=== PATIENT | male | born 1940 | race Caucasian/White ===

== ENCOUNTER 2018-08-23 06:15 | Inpatient (IN) ==
[2018-08-23] MEDS ORDERED: Bupivacaine/Epinephrine PF Inj 0.5% 30 ML Vial ONE (06:29)
[2018-08-23] MEDS ORDERED: Gelatin Size 100 Topical Foam ONE (06:29)
[2018-08-23] MEDS ORDERED: Thrombin Topical Soln 5,000 UNIT Vial TOPICAL ONE (06:29)
[2018-08-23] MEDS ORDERED: ceFAZolin 2 GM Premix Inj 2 GM/50 ML PIGGYBACK IV.SIG ONE (06:29)
[2018-08-23] MEDS ORDERED: HYDROmorphone PF Inj 2 MG/ML Vial ONE (07:13)
[2018-08-23] MEDS ORDERED: Ketamine Inj 50 MG/5 ML Syringe IV.PUSH ONE (07:13)
[2018-08-23] MEDS ORDERED: Dexmedetomidine Inj 200 MCG/2 ML Vial ONE (07:13)
[2018-08-23] MEDS ORDERED: Artificial Tears Opth Oint 3.5 GM Tube ONE (07:13)
[2018-08-23] MEDS ORDERED: Propofol Inj 500 MG/50 ML Vial ONE ×2 (07:14→12:03)
[2018-08-23] MEDS ORDERED: fentaNYL Citrate Inj 250 MCG/5 ML Ampul ONE (07:14)
[2018-08-23] MEDS ORDERED: Metoprolol Tartrate 25 MG Tablet PO ONE (07:30)
[2018-08-23] MEDS ORDERED: Sodium Chlor 0.9% Inj 500 ML IV.CONT ONE (07:30)
[2018-08-23] MEDS ORDERED: Sod Chloride 0.9% Inj 1,000 ML IV.SIG SCH (07:30)
[2018-08-23] MEDS ORDERED: Chlorhexidine Gluconate 2% 1 Pack (2 Cloths) TOPICAL ONE (07:30)
[2018-08-23] MEDS ORDERED: Vancomycin Inj 1,000 MG in Sodium Chlor 0.9% Inj 250 ML IV.SIG SCH (08:00)
[2018-08-23] MEDS ORDERED: Bisacodyl 10 MG Supp RECTAL PRN (09:56)
[2018-08-23] MEDS ORDERED: Morphine Inj 4 MG/ML Vial IV.PUSH PRN (09:56)
[2018-08-23] MEDS ORDERED: Naloxone Inj 0.4 MG/ML Vial IV.PUSH PRN ×2 (10:00→10:02)
[2018-08-23] MEDS ORDERED: Dextrose 50% in Water 50 ML Vial IV.PUSH PRN (10:00)
[2018-08-23] MEDS ORDERED: ALPRAZolam 0.5 MG Tablet PO PRN (10:02)
[2018-08-23] MEDS ORDERED: HYDROmorphone PCA Inj 6 MG/30 ML PCA.VIAL PCA PRN (10:02)
[2018-08-23] MEDS ORDERED: Insulin NovoLIN Regular Correctional Sugar Inj SQ SCH (12:00)
--- NOTE | 2018-08-23 14:21 | XR ---
EXAM DATE: 08/23/2018 2:04 PM EST AGE/SEX: 78 years / Male INDICATIONS: Stenosis, hardware placement. CLINICAL DATA: This is the patient's initial encounter. Patient reports that signs and symptoms have been present for 1 day and indicates a pain score of 0/10. MEDICAL/SURGICAL HISTORY: None. . Fusion COMPARISON: No prior exams available for comparison. FINDINGS: Transpedicular screws traverse the bodies of L3, L4, L5, and S1 with posterior stabilization hardware in place and there is fusion at L4-5 and L5-S1 anteriorly with gross anatomical alignment . CONCLUSION: Intact immediate postsurgical changes. Electronically signed by: Shaun Sousa MD 08/23/2018 2:20 PM EST
[2018-08-23] MEDS: Insulin NovoLOG Aspart Correctional Sugar Inj SQ SCH ×3 (14:39→23:36)
[2018-08-23] MEDS: Sod Chloride 0.9% Inj 1,000 ML IV.SIG SCH (15:59)
--- NOTE | 2018-08-23 16:16 | P.OP ---
Preoperative Diagnosis: Degenerative spondylolisthesis at L5-S1 Postoperative Diagnosis: Degenerative spondylolisthesis at L5-S1 Date of procedure: 08/23/18 Procedure: L5-S1 laminectomy, interbody arthrodhesis using PEEK cage and autologous bone graft, L5-S1 instrumental fixation using transpedicular screws and rods, L5-S1 posterolateral fusion using autologous bone graft and demineralized bone matrix. Microsurgical dissection Anesthesia: GETA Surgeon: Thom Dunaway MD Creative Specialist: Traci Galeana Pathology: none sent Operation and Findings: INDICATIONS FOR THE SURGICAL PROCEDURE Mr Hadley is a 78 year-old male with history of a prior L3-L5 laminectomy and fusion using a transitional Globus fusion with semi-rigid fixation,who presented with intractable mechanical back pain and sean evidence of lower extremity S1 radiculopathy. He has degenerative spondylolisthesis at L5-S1, adjacent to his prior fusion, with secondary spinal stenosis. Hr failed maximum nonsurgical management including multiple modalities of conservative treatment as well as pain management interventions by an interventional pain specialist. A surgical decompression and arthrodhesis were indicated as a last resort. The [id number] details of the procedure, indications, alternatives, risks and potential complications were fully discussed with the patient. The patient fully understood. All his questions were answered. No guarantees were given. The patient voiced requesting the procedure and provided informed consents. He was offered the alternative of delaying the procedure and continuing with nonsurgical management. DETAILS OF THE SURGICAL PROCEDURE Prior to the procedure, the surgical incision was marked in the preoperative surgical holding room, and the procedure, risks, and potential complications revisited with the patient. Placement of electrodes for intraoperative neurophysiological monitoring was completed. The patient was taken to the operative room, and following induction of general anesthesia, endotracheal intubation was performed. A Max catheter, bilateral BRIAN hose and sequential compression devices were placed and kept throughout the procedure. The patient was positioned prone, over a Candido table over a Neel frame. All pressure in the preoperative surgical holding room points were carefully padded with eggcrate and gel mattress. The eyes were tapped shut after ointment was applied by the anesthesiologist to prevent corneal abrasion. A Nilda hugger was placed over the expossed lower body to maintain control of the core body temperature. The electrophysiological team placed the needles and electrodes in their proper location and baseline SSEP's and motor evoked potentials were registered. The entrance to each pedicles was marked using a C arm. The lumbar region was prepped and draped in the usual sterile fashion. The surgical procedure was performed in several steps as follow: SURGICAL APPROACH Once the patient was positioned, a localizing cross-table lateral x-ray was performed with a C-arm. Two paramedian small incisions were outlined on the skin approximately 3 cm from the midline. The skin incisions were made with a # 10 blade. Small bleeders were controlled with the cautery. The dissection was then carried out into deeper planes and through the thoracolumbar fascia with a Bovie. The intermuscular septum was identified and the myscles were blunted dissected along the septum. The facets and transverse process of L5 and S1 were exposed and the proper anatomical landmarks were identified. A microsurgical self-retaining retractor was placed on the incision, and a localizing lateralizing cross-table x-ray was performed with an instrument underneath a lamina of the lumbar spine of L4. At this point of the procedure, the prior instrumentation was carefully exposed free of scar tissue and the cross link was removed. Then, the caps of the previously placed screws at L5 were sequentially removed, and the rods were cut between L4-5 using the TPS drill with the metal-cutting Tungsten drill bit, allowing removal of the rods from L5. The screws were carefully removed INSTRUMENTAL FIXATION At this point in the procedure, placement of bilateral transpedicular screws was necessary for stabilization of the spine. Initially, the entry point for the screw was selected anatomically at the junction of the facet, with the transverse process, and the pars interarticularis at L5 and at the sacrum. This was started with a Giamshetti needle followed by the use of a little wire. A tap was used to create the threads for the screws. Finally bilateral transpedicular screws were carefully placed bilaterally at L5 and S1 under fluoroscopic visualization. An appropriate purchase was achieved with all screws. The position of each screw was assessed anatomically with an AP, lateral , oblique Xrays. An intraoperative scan view of the spine was then performed using the iso-centric c-arm. Each screw was then assessed electrophysiologically with a nerve stimulator. SURGICAL DECOMPRESSION There was significant mass effect with compression of the neural structures. In order to relieve neural compression, it was necessary to perform a decompressive laminectomy, with decompression of the spinal canal and bilateral lateral recesses. Note that the scope of such decompression was significantly more extensive than the minimal exposure necessary to perform an interbody fusion, as there was extreme facet arthropathy with near complete collapse of the disk spaces and severe stenosis cause by the hyperthrophic joint facets. At this point of the procedure the operative microscope was draped in the usual sterile fashion and brought to the field. The rest of the surgical procedure was performed using microdissection technique with the exception of the closure. Under the operating microscope, a decompressive laminectomy was carried out at L5-S1 as follow: The laminae, base of the spinous processes and facets were carefully drilled exposing the ligamentum flavum. The facets were abnormal with a bilateral severe facet arthropathy. A large disk protusion was compressing the neural structures and exiting S1 nerve root. A near complete facetectomy was necessary on the right side, The ligamentum flavum appeared hypertrophic, resulting on mass effect on the dorsal surface of the neural structures. The superior free border of the ligamentum flavum was elevated with a ligament dissector and the ligamentum flavum was removed with a 3 and 4 mm Kerrison forceps. The ligament was very adherent to the dural sac and during the dissection, ans extreme care was taken during the dissection. The exiting nerve roots were identified, and a wide foraminotomy was performed with a Kerrison in their trajectory towards the neural foramen. Epidural veins located laterally to the dural sac were coagulated with the bipolar cautery, and then incised using microscissors. Gentle medial retraction of the dural sac allowed me to expose the disc space for the discectomy. Upon completion of the discectomy, an excellent decompression of the neural structures was achieved. Increased motion was noted thorough the procedure, which was consistent with mechanical instability. INTERBODY ARTHRODHESIS In order to correct the narrowing of the disk space and maintain distraction of the space, and to achieve a solid interbody fusion, it was necessary the insertion of an interbody device into the disk space. Otherwise, the disk space would collapse, compromising the result of the surgical procedure. At this point of the procedure, the annulus fibrosus of the disk was carefully coagulated with a bipolar cautery and incised using an 11 bladed knife. Then, a microdiscectomy was carried out in a standard fashion using a combination of straight and up-biting pituitary forceps. A reverse angle curette was applied underneath the posterior longitudinal ligament, and used to push the disk fragments into the disk space, so they can be safely removed with a pituitary forceps. Once the discectomy was completed, it was necessary to decorticate the endplates, in order to eliminate the cartilaginous endplate and to expose healthy bone appropriate to perform the interbody fusion. The endplates at L5- S1 were then thoroughly decorticated using increasing size bone sheryl and ring curets, eliminating the cartilaginous fragments from both, the superior and inferior endplates. A disk space distractor was applied to the pedicle screws and gentle distraction was applied. This maneuver was assisted by the use of a disk distractor. Increased motility was noted at the disk, which was consistent with instability due to facet arthropathy. Once a thorough preparation of the disk space was achieved, the disk space was irrigated with antibiotic solution, and the interbody fusion was performed by carefully impacting a PPEK cage filled with autologous bone graft. The use of several shoe impactors with different angulation, allowed me for an excellent, proper position of the interbody cage. A solid position of the cage with good purchase was achieved. The position of the cage was assessed anatomically with a probe and radiologically with the C-arm. POSTEROLATERAL FUSION The posterolateral fusion is a critical component to the procedure, to prevent future fatigue and failure of the instrumental fixation. Initially, the transverse processes of the vertebral bodies, lateral surface of the facets and the lateral gutters of the spine were carefully cleaned, eliminating all soft tissue and muscle attachments. The area was then irrigated with a large amount of antibiotic solution. Subsequently, the transverse processes, lateral surface of the facets, and lateral gutters of the spine were thoroughly decorticated using the TPS drill with a 5mm cutting betsy, exposing cancellous bone, in preparation for the posterolateral fusion. The incision was again irrigated with antibiotic solution. Then, the posterolateral fusion was then performed by carefully packing the lateral gutters of the spine at L5-S1 with autologous bone combined with demineralized bone matrix. COMPLETION OF THE INSTRUMENTATION AND CLOSURE The rods were brought to the field, applied to all the screws, and the screw caps were sequentially applied. Compression was performed between the pedicle screws, and final tightening of the screws was completed using a torque wrench. The incision was again thoroughly irrigated with several liters of antibiotic solution, and hemostasis secured with the bipolar cautery. A Valsalva Maneuver performed by the anesthesiologist failed to show any evidence of cerebrospinal fluid leak or bleeding. A 7 mm Candido-Winter drain was left in the epidural space and externalized through a separate stab incision. The incision was then closed in planes. 0 Vicryl was used in an interrupted fashion to close the thoracolumbar fascia and the superficial fascia. The subcutaneous tissue was then approximated using 3-0 Vicryl in an interrupted fashion. Special care was taken to avoid space. The skin was then closed with 4-0 Vicryl in a running, subcuticular fashion. Each plane of closure was irrigated with antibiotic solution. At the end of the procedure the sponge, needle and instrument counts were all correct. Estimated blood loss was 300 cc. No blood transfusion was given. The entire procedure was performed using continuous electrophysiological monitoring of the somatosensorial evoked potentials and EMG. The patient received prophylactic antibiotics. The patient was then extubated and transferred to the recovery room in stable condition.
[2018-08-23] MEDS: ceFAZolin 2 GM Premix Inj 2 GM/50 ML PIGGYBACK IV.SIG SCH (17:26)
[2018-08-23] MEDS: Gabapentin 300 MG Capsule PO SCH (20:29)
[2018-08-23] MEDS: Senna/Docusate Sodium 8.6/50 MG Tablet PO SCH (20:30)
[2018-08-24] MEDS: ceFAZolin 2 GM Premix Inj 2 GM/50 ML PIGGYBACK IV.SIG SCH ×2 (01:30→08:06)
[2018-08-24] MEDS: Sod Chloride 0.9% Inj 1,000 ML IV.SIG SCH ×3 (01:31→21:54)
[2018-08-24] MEDS: Insulin NovoLOG Aspart Correctional Sugar Inj SQ SCH ×4 (05:47→21:53)
[2018-08-24] MEDS: Gabapentin 300 MG Capsule PO SCH ×2 (08:07→20:29)
[2018-08-24] MEDS: Fenofibrate 145 MG Tablet PO SCH (08:07)
[2018-08-24] MEDS: dilTIAZem CD 240 MG Capsule PO SCH (08:08)
[2018-08-24] MEDS: Senna/Docusate Sodium 8.6/50 MG Tablet PO SCH ×2 (08:08→20:30)
[2018-08-24] MEDS ORDERED: Lisinopril 5 MG Tablet PO SCH (09:00)
--- NOTE | 2018-08-24 10:15 | P.CONIM ---
History of Present Illness Reason for Consult: Post-op medical management Primary Care Provider: Juanita Randolph MD History of Present Illness: This is 78-year-old male patient with past medical history which includes hyperlipidemia, diabetes mellitus type 2 on metformin, hypertension, anxiety, chronic lower back pain. Patient presented to [facility] for surgery with Dr. Dunaway. [facility] Hospitialist have been consulted for assistance with postoperative medical management. PMH: includes hyperlipidemia, diabetes mellitus type 2 on metformin, hypertension, anxiety, chronic lower back pain PSxH: Colonoscopy, hemilaminectomy decompression lumbar interspace FMH: Reviewed and noncontributory Social history: , lives with significant other, retired Occasional EtOH use Former smoker Denies illicit drug use PMF Social History Social History Substance History: No History of Abuse Second Hand Smoke Exposure: No Smoking Status: Never smoker Tobacco Type: Cigarettes How Often Do You Have a Drink Containing Alcohol: Never Recent Travel in [facility] within the Last 8 Weeks: No Recent Out of Country Travel within the Last 8 Weeks: No Immunization History Hx Influenza Vaccine This Season: No Medications and Allergies Allergies Allergy/AdvReac Type Severity Reaction Status Date / Time No Known Allergies Allergy Verified 08/23/18 07:50 Home Medications Medication Instructions Recorded Confirmed Type alpha lipoic acid 600 mg PO BID 08/19/18 08/23/18 History alprazolam 0.5 mg PO DAILY PRN 08/19/18 08/23/18 History aspirin [Ecotrin] 325 mg PO DAILY 08/19/18 08/23/18 History cyanocobalamin (vitamin B-12) 1,000 mcg SUBLINGUAL DAILY 08/19/18 08/23/18 History diltiazem HCl 240 mg PO DAILY 08/19/18 08/23/18 History fenofibrate nanocrystallized 145 mg PO DAILY 08/19/18 08/23/18 History [Tricor] gabapentin 600 mg PO BID 08/19/18 08/23/18 History lisinopril 5 mg PO DAILY 08/19/18 08/23/18 History metformin 1,000 mg PO BID 08/19/18 08/23/18 History pyridoxine (vitamin B6) 50 mg PO DAILY 08/19/18 08/23/18 History simvastatin 20 mg PO QPM 08/19/18 08/23/18 History Active Medications: Active Medications Hydrocodone Bitart/Acetaminophen ([place] 10/325) 2 tab PO Q4H PRN PRN Reason: PAIN SCALE 6 TO 10 Al Hydroxide/Mg Hydroxide (Milk Of Magnesia Liq) 30 ml PO Q12H PRN PRN Reason: Mild Constipation Alprazolam (Xanax) 0.5 mg PO DAILY PRN PRN Reason: Anxiety Bisacodyl (Dulcolax Supp) 10 mg RECTAL DAILY PRN PRN Reason: SEVERE CONSITIPATION Cyanocobalamin (Vitamin B12) 1,000 mcg PO DAILY [facility] Last Admin: 08/24/18 08:07 Dose: 1,000 mcg Dextrose (D50w Vial) 50 ml IV.PUSH UNSCH PRN PRN Reason: PER HYPOGLYCEMIA PROTOCOL Diltiazem HCl (Cardizem Cd 24hr) 240 mg PO DAILY [facility] Last Admin: 08/24/18 08:08 Dose: Not Given Fenofibrate (Tricor) 145 mg PO DAILY [facility] Last Admin: 08/24/18 08:07 Dose: 145 mg Gabapentin (Neurontin) 600 mg PO BID [facility] Last Admin: 08/24/18 08:07 Dose: 600 mg Glucagon (Glucagon Inj) 1 mg OTHER PRN PRN PRN Reason: for Hypoglycemia Protocol Sodium Chloride (Ns Inj) 1,000 mls @ 30 mls/hr IV.SIG .Q24H [facility] Vancomycin HCl 1,000 mg/ (Sodium Chloride) 250 mls @ 250 mls/hr IV.SIG MENTAL RETARDATION NURSE [facility] Stop: 08/26/18 07:59 Hydromorphone/Sodium Chloride (Dilaudid Rejected Items Clerk Inj) 6 mg in 30 mls @ 0 mls/hr DISTRIBUTION TECH UNSCH PRN PRN Reason: per DISTRIBUTION TECH parameters Last Infusion: 08/24/18 06:23 Dose: 0 mls/hr Sodium Chloride (Ns Inj) 1,000 mls @ 100 mls/hr IV.SIG .Q10H [facility] Last Admin: 08/24/18 01:31 Dose: 100 mls/hr Insulin Aspart (Novolog Insulin Correctional Sugar Inj) 0 unit SQ Q6HR [facility]; Protocol Last Admin: 08/24/18 05:47 Dose: 9 unit Insulin Human Regular (Novolin R Correctional Sugar Inj) 0 units SQ Q6HR [facility]; Protocol Lactulose (Lactulose Liq) 30 ml PO DAILY PRN PRN Reason: SEVERE CONSITIPATION Lisinopril (Prinivil) 5 mg PO DAILY [facility] Metformin HCl (Glucophage) 1,000 mg PO BIDPC [facility] Last Admin: 08/24/18 08:07 Dose: 1,000 mg Miscellaneous Information ([facility] Nursing Information) 1 each OTHER UNSCH PRN PRN Reason: SEE LABEL COMMENTS Stop: 08/24/18 14:06 Morphine Sulfate (Morphine Inj) 4 mg IV.PUSH Q4H PRN PRN Reason: Pain Scale 7 to 10 Naloxone HCl (Narcan Inj) 0.4 mg IV.PUSH PRN PRN PRN Reason: SEE LABEL COMMENTS Naloxone HCl (Narcan Inj) 0.4 mg IV.PUSH PRN PRN PRN Reason: SEE LABEL COMMENTS Pantoprazole Sodium (Protonix) 40 mg PO DAILY [facility] Last Admin: 08/24/18 08:08 Dose: 40 mg Pravastatin Sodium (Pravachol) 40 mg PO QPM [facility] Last Admin: 08/23/18 17:58 Dose: 40 mg Pyridoxine HCl (Vitamin B-6) 50 mg PO DAILY [facility] Last Admin: 08/24/18 08:07 Dose: 50 mg Senna/Docusate Sodium (Rhea-Colace) 1 tab PO BID [facility] Last Admin: 08/24/18 08:08 Dose: 1 tab Sennosides (Senokot) 17.2 mg PO Q12H PRN PRN Reason: Moderate Constipation Physical Exam Vital signs: Last Vital Signs Temp 98.2 F 08/24/18 08:00 Pulse 96 H 08/24/18 08:00 Resp 16 08/24/18 08:00 BP 150/60 H 08/24/18 08:00 Pulse Ox 95 08/24/18 08:00 Narrative: GENERAL: This is a well-nourished, well-developed patient, in no apparent distress. CARDIOVASCULAR: Regular rate and rhythm without murmurs, gallops, or rubs. RESPIRATORY: Clear to auscultation. Breath sounds equal bilaterally. No wheezes , rales, or rhonchi. GASTROINTESTINAL: Abdomen soft, non-tender, nondistended. Normal active bowel sounds MUSCULOSKELETAL: Extremities without clubbing, cyanosis, or edema. NEURO: Alert & Oriented x4 to person, place, time, situation. Moves all ext x4 Assessment and Plan Plan This is 78-year-old male patient with past medical history which includes hyperlipidemia, diabetes mellitus type 2 on metformin, hypertension, anxiety, chronic lower back pain. Patient presented to [facility] for surgery with Dr. Dunaway. [facility] Hospitialist have been consulted for assistance with postoperative medical management. Degenerative spondylolisthesis at L5-S1 Chronic lower back pain S/P L5-S1 laminectomy, interbody arthrodhesis using PEEK cage and autologous bone graft, L5-S1 instrumental fixation using transpedicular screws and rods, L5 -S1 posterolateral fusion using autologous bone graft and demineralized bone matrix. Microsurgical dissection with Dr. Dunaway 08/23/18 Hyperlipidemia Continue patient's home simvastatin 20mg PO QPM Diabetes mellitus type 2 on metformin Continue patient's home metformin 1000 mg p.o. twice daily Accu-Cheks AC at bedtime with sliding scale insulin coverage Diabetic diet Hypertension Continue patient's home lisinopril 5 mg p.o. daily and Cardizem 240 mg p.o. daily Anxiety Continue patient's home Xanax 0.5 mg PO daily as needed SCD prophylaxis with SCDs
--- NOTE | 2018-08-24 15:02 | P.PNNS ---
Subjective Interval history: pt was seen this morning during rounds, pt reports he has no pain, doing well, ambulating well, feeling much better. he has not used his SCIENTIST PROPAGATOR pump. He is very eager to go home today. Physical Exam Vital signs: Vital Signs 08/23/18 15:15 08/23/18 15:45 08/23/18 17:05 Temperature 97.7 F Pulse Rate 64 64 63 Respiratory Rate 20 18 18 Blood Pressure 103/56 L 101/50 L 108/53 L Pulse Oximetry 96 95 97 08/23/18 19:04 08/23/18 20:31 08/23/18 23:16 Temperature 97.5 F L 98.1 F Pulse Rate 68 66 Respiratory Rate 18 17 18 Blood Pressure 109/55 L 107/59 L Pulse Oximetry 98 98 08/24/18 04:12 08/24/18 08:00 08/24/18 12:00 Temperature 98.3 F 98.2 F 99.1 F Pulse Rate 75 96 H 100 H Respiratory Rate 18 16 16 Blood Pressure 117/59 L 150/60 H 126/69 Pulse Oximetry 99 95 97 Intake & Output 08/23/18 08/24/18 08/24/18 18:59 06:59 18:59 Intake Total 2830 / 2830 1680 / 1680 950 / 950 Output Total 1875 / 1875 2210 / 2210 30 / 30 Balance 955 / 955 -530 / -530 920 / 920 Weight 167.64 kg 72.6 kg Intake: IV 50 / 50 960 / 960 950 / 950 NS Inj 1,000 ML @ 100 mls/hr IV 910 / 910 900 / 900 .SIG .Q10H [facility] Rx#:[id number] Ancef 2 GM Premix Inj 2 gm In 50 / 50 50 / 50 50 / 50 50 ml @ 100 mls/hr IV.SIG Q8H [facility] Rx#:[id number] Oral 480 / 480 720 / 720 Anesthesia Amount 2300 / 2300 Output: Estimated Blood Loss 200 / 200 Urine Amount (Catheter) 1649 / 0 2124 Indwelling Urethral Catheter 1649 Wound Drainage 85 / 85 30 / 30 # 1 Medial Back NAYANA Drain 85 / 85 30 Other: Date of Last Bowel Movement 08/23/18 08/23/18 # Bowel Movements 0 Weight On Admission 70.3 kg Narrative: ambulating with PT, LSO brace in place moves major muscle groups of LE's well NAYANA drain in place with moderate sanguinous drainage - Urinary Catheter Management Indwelling Urethral Catheter Cath placed during this visit: yes Reason for continuing: Other continuation reason Insertion date: 08/23/18 Insertion time: 08:50 Assessment and Plan - Plan POD 1 L5-S1 laminectomy, interbody arthrodhesis using PEEK cage and autologous bone graft, L5-S1 instrumental fixation using transpedicular screws and rods, L5 -S1 posterolateral fusion using autologous bone graft and demineralized bone matrix. Microsurgical dissection 08/23/18 Plan: pt reports no pain, he has not been requiring IV pain medications and requesting discharge home today recommend patient wait until the afternoon to ensure adequate pain control with po medications dc SCIENTIST PROPAGATOR pump and dw patient will ensure pain control by this afternoon, po meds available prn Dr. Dunaway cleared for dc NAYANA drain prior to dc dc tobias cont LSO when out of bed wound care and activity restrictions discussed f/u Dr. Dunaway office in 5-7 days dw nursing to contact us for update later this afternoon
[2018-08-24] MEDS ORDERED: Temazepam 15 MG Capsule PO PRN (21:00)
[2018-08-25] MEDS: Senna/Docusate Sodium 8.6/50 MG Tablet PO SCH (08:15)
[2018-08-25] MEDS: Gabapentin 300 MG Capsule PO SCH (08:16)
[2018-08-25] MEDS: Fenofibrate 145 MG Tablet PO SCH (08:16)
[2018-08-25] MEDS: dilTIAZem CD 240 MG Capsule PO SCH (08:16)
[2018-08-25 10:44] VITALS: O2SAT 95
[2018-08-25] MEDS: Insulin NovoLOG Aspart Correctional Sugar Inj SQ SCH (11:50)
[2018-08-25 12:46] VITALS: BP 142/62; PULSE 99; RESP 22; TEMP 98.4
--- NOTE | 2018-08-25 12:58 | P.DS ---
Date of admission: 08/23/18 06:15 Primary care physician: Juanita Randolph MD DS: Medications - Discharge Medications Prescriptions: hydrocodone-acetaminophen 1 tab PO Q4-6H PRN 3 Days #15 tab PRN Reason: Pain Scale 6 To 10 DS: Summary - Time Spent with Patient Total time spent providing and/or coordinating discharge services: - Quality: VTE Deep Vein Thrombosis/Pulmonary Embolism Present on Admission: No Exam Vital signs: Vital Signs 08/24/18 16:00 08/24/18 20:04 08/24/18 22:06 Temperature 98.5 F 98.1 F Pulse Rate 106 H 87 Respiratory Rate 16 18 18 Blood Pressure 139/72 120/58 L Pulse Oximetry 95 94 L 08/25/18 00:10 08/25/18 08:00 08/25/18 12:00 Temperature 97.5 F L 98.6 F 98.4 F Pulse Rate 78 73 99 H Respiratory Rate 18 24 22 Blood Pressure 113/61 134/64 142/62 H Pulse Oximetry 96 95 95 Intake & Output 08/24/18 08/25/18 08/25/18 18:59 06:59 18:59 Intake Total 950 / 950 480 / 480 Output Total 685 / 685 670 / 670 Balance 265 / 265 -190 / -190 Weight 72.6 kg Intake: IV 950 / 950 NS Inj 1,000 ML @ 100 mls/hr IV 900 / 900 .SIG .Q10H ALEK Rx#:[id number] Ancef 2 GM Premix Inj 2 gm In 50 / 50 50 ml @ 100 mls/hr IV.SIG Q8H ALEK Rx#:[id number] Oral 480 / 480 Output: Urine 625 / 625 650 / 650 Wound Drainage 60 / 60 20 / 20 # 1 Medial Back NAYANA Drain 60 / 60 20 / 20 Other: Date of Last Bowel Movement 08/24/18 # Bowel Movements 0 Results Labs on day of discharge: Labs from last 24 hours 08/25/18 08/25/18 08/24/18 11:34 08:17 19:32 POC Glucose 119 H 103 187 H 08/24/18 17:18 POC Glucose 172 H - Impressions ITS Impressions Lumbar Spine X-Ray 08/23/18 00:00 CONCLUSION: Intact immediate postsurgical changes. Discharge Plan - Discharge Disposition Patient Disposition: 01 Discharge Home - Discharge Condition Condition: Good - Discharge Order Discharge Orders: Discharge Order (Routine); Ordered 08/25/18 Ordered By: Radha Holden - Physicians Team Primary Care Provider: Juanita Randolph Attending Provider: Thom Dunaway Other Providers: Mahendra Larsen DO - Rxs /Orders / Referrals /Forms Prescriptions: New hydrocodone-acetaminophen 10-325 mg Tablet 1 tab PO Q4-6H PRN (Reason: Pain Scale 6 To 10) 3 Days Qty: 15 RF: 0 Continue alpha lipoic acid 600 mg Capsule 600 mg PO BID alprazolam 0.5 mg Tablet 0.5 mg PO DAILY PRN (Reason: Anxiety) aspirin [Ecotrin] 325 mg Tablet,Delayed Release (Dr/Ec) 325 mg PO DAILY cyanocobalamin (vitamin B-12) 1,000 mcg Tablet, Sublingual 1,000 mcg SUBLINGUAL DAILY diltiazem HCl 240 mg Tablet Extended Release 24 Hr 240 mg PO DAILY fenofibrate nanocrystallized [Tricor] 145 mg Tablet 145 mg PO DAILY gabapentin 600 mg Tablet 600 mg PO BID lisinopril 5 mg Tablet 5 mg PO DAILY metformin 1,000 mg Tablet 1,000 mg PO BID pyridoxine (vitamin B6) 50 mg Tablet 50 mg PO DAILY simvastatin 20 mg Tablet 20 mg PO QPM Referrals: Juanita Randolph MD [Primary Care Provider] - See Instructions - Discharge Instructions Patient Printed Instructions: Hydrocodone/Acetaminophen (By mouth), Laminectomy (DC), How to Choose and Use a Walker (GEN) Additional Instructions: Your Health Problems: Full weight bearing Wear brace when out of bed NO Dressing changes per surgeon Prescription for Hydrocodone provided at discharge Follow up with Surgeon as directed Goals to Promote Your Health: * To prevent worsening of your condition * To maintain your health at the optimal level Directions to Meet Your Goals: * Take your medications as prescribed * Follow your dietary instruction * Follow activity as directed * Keep your appointments as scheduled * Take your immunizations and boosters as scheduled * If your symptoms worsen call your PCP * If no PCP go to Urgent Care or Emergency Room Smoking is dangerous to your health. Avoid second hand smoke. You may reach the 24-hour crisis hotline for domestic abuse at .
== END 2018-08-25 13:15 | disposition home or self-care (01) ==
LOC: HSDI 06:15 → N06 16:11
PROVIDERS: ADMIT Neurological Surgery; ATTEND Neurological Surgery